=== PATIENT | male | born 1955 | race Caucasian/White ===

== ENCOUNTER 2025-03-23 06:33 | Day surgery (SDC) | payer OTHER ==
[2025-03-16 12:09] VITALS: BMI 38.4
[2025-03-23 09:13] VITALS: TEMP 97.8
[2025-03-23 10:26] VITALS: RESP 16
[2025-03-23 11:07] VITALS: BP 116/69; PULSE 60
== END 2025-03-23 11:20 | disposition home or self-care (01) ==
LOC: JASU-ENDO 06:33
PROVIDERS: ATTEND Internal Medicine Gastroenterology
PROC: 0DBH8ZX Excision of Cecum, Via Natural or Artificial Opening Endoscopic, Diagnostic (ICD-10-PCS; 2025-03-23)
PROC: 0DB98ZX Excision of Duodenum, Via Natural or Artificial Opening Endoscopic, Diagnostic (ICD-10-PCS; 2025-03-23)
PROC: 0DB68ZX Excision of Stomach, Via Natural or Artificial Opening Endoscopic, Diagnostic (ICD-10-PCS; 2025-03-23)
PROC: 0DBM8ZX Excision of Descending Colon, Via Natural or Artificial Opening Endoscopic, Diagnostic (ICD-10-PCS; principal; 2025-03-23 10:00)
DX: Z12.11 Encounter for screening for malignant neoplasm of colon (principal); D12.4 Benign neoplasm of descending colon; D12.0 Benign neoplasm of cecum; K57.30 Diverticulosis of large intestine without perforation or abscess without bleeding; K64.8 Other hemorrhoids; K44.9 Diaphragmatic hernia without obstruction or gangrene; K29.00 Acute gastritis without bleeding
CPT/HCPCS: 82010; 82962; 88305-TC; 88342-TC